=== PATIENT | male | born 1950 | race Caucasian/White ===

== ENCOUNTER 2019-04-28 17:45 | Observation (INO) ==
[2019-04-28 18:18] LABS: Hematocrit 41.7 % (37.5-50.1); Mean Corpuscular HGB Conc 33.6 g/dL (31.6-35.5); Mean Corpuscular Hemoglobin 30.4 pg (28.0-33.3); Mean Corpuscular Volume 90.5 fL (83.0-100.0); Mean Platelet Volume 9.9 fL (9.4-12.4); Platelet Count 220 K/mcL (140-400); Red Blood Count 4.61 M/mcL (4.19-5.50); Red Cell Distribution Width 13.1 % (11.5-14.5); White Blood Count 8.7 K/mcL (4.3-11.1)
[2019-04-28 18:27] LABS: Prothrombin Time 11.1 Seconds (9.4-12.1)
[2019-04-28 18:29] LABS: Activated Partial Thrombo Time 33.3 Seconds (26.0-36.0)
[2019-04-28 18:33] LABS: BUN/Creatinine Ratio 16 (6-26); Blood Urea Nitrogen 22 mg/dL (8-23); Calcium 8.6 mg/dL (8.6-10.3); Carbon Dioxide 27 mEq/L (23-29); Chloride 106 mEq/L (98-107); Ethanol < 10 mg/dL (Less than 10); Glucose 113 mg/dL (70-105); Osmolality,Calculated 288 (280-300); Potassium 3.9 mEq/L (3.5-5.1); Sodium 137 mEq/L (136-145); eGFR For African Americans > 60 (> 60); eGFR For Non-African Americans 52 (> 60)
--- NOTE | 2019-04-28 18:35 | Emergency Department Note ---
Disposition Clinical Impression: Numbness Disposition: Admitted As Inpatient Condition: Good Time of Disposition: 11:45 Neuro HPI - General Chief Complaint: ED Neuro Symptoms/Deficit Stated Complaint: R-Sided numbness Time Seen by Provider: 04/28/19 17:56 Source: patient Nursing Notes Reviewed: Yes Vital Signs Reviewed: Yes - History of Present Illness HPI Narrative: Patient is a 69-year-old male who presents with concerns of right sided upper and lower extremity pain and weakness over the past 1.5 hours. Patient states that he laid down to take a nap around 4:00 PM, upon waking around 4:30 he went to stand up and had severe pain in his right arm and leg which almost caused him to fall. He states since this time he is also had decreased sensation and numbness in the right-sided arm and leg. He denies any recent falls or traumas. He is not on blood thinners. He denies a prior history of strokes. He denies any associated headache, visual changes, nausea, vomiting, chest pain, short of breath or systemic symptoms. - Related Data Home Medications: Home Medications Medication Instructions Recorded Confirmed Metoprolol Succinate [Toprol Xl] 50 mg PO DAILY 06/29/15 04/28/19 Duloxetine HCl [Cymbalta] 60 mg PO BID 11/11/17 04/28/19 Isosorbide MONOnitrate (24 HR) 30 mg PO DAILY 11/11/17 04/28/19 [Imdur] Dutasteride 0.5 mg PO DAILY 07/10/18 04/28/19 Lisinopril [Zestril] 5 mg PO DAILY 07/10/18 04/28/19 Nitroglycerin [Nitrostat] 0.4 mg SL AD PRN 07/10/18 04/28/19 Omeprazole [PriLOSEC] 20 mg PO DAILY 07/10/18 04/28/19 Oxycodone HCl [Roxybond] 15 mg PO Q6H PRN 07/10/18 04/28/19 Tamsulosin HCl [Flomax] 0.4 mg PO DAILY 07/10/18 04/28/19 Amlodipine Besylate 10 mg PO HS 04/28/19 04/28/19 Aspirin 81 mg PO HS 04/28/19 04/28/19 Baclofen [Lioresal] 10 mg PO HS 04/28/19 04/28/19 Potassium Citrate [Urocit-K] 15 meq PO BID 04/28/19 04/28/19 Pregabalin [Lyrica] 150 mg PO 1200,0000 04/28/19 04/28/19 hydroCHLOROthiazide 12.5 mg PO DAILY 04/28/19 04/28/19 [Hydrochlorothiazide] Previous Rx's Medication Instructions Recorded Atorvastatin Calcium [Lipitor] 80 mg PO HS #30 tab 06/07/15 Allergies/Adverse Reactions: Allergies Allergy/AdvReac Type Severity Reaction Status Date / Time ciprofloxacin Allergy See Verified 07/10/18 14:05 Comments Gadolinium-Containing Allergy Itching Verified 10/24/17 11:30 Contrast Medi Iodinated Contrast Media Allergy See Verified 07/10/18 14:05 Comments bupropion [From Wellbutrin] AdvReac See Verified 07/10/18 14:05 Comments finasteride [From Proscar] AdvReac See Verified 07/10/18 14:05 Comments glucosamine AdvReac See Verified 07/10/18 14:05 Comments Review of Systems: REVIEW OF SYSTEMS: Constitutional: No F/C, No excessive fatigue Eye: No acute visual changes HENT: No sore throat, No rhinorrhea Resp: No SOB, No cough Cardio: No palpitations, No chest pain GI: No abdominal pain, No nausea, No vomiting, No constipation, No diarrhea, No melena or hematochezia : No dysuria, No hematuria Musculoskeletal: Admits to arm and leg pain, No new joint swelling, No back pain Neuro: Admits to numbness, weakness, No headaches Skin: No skin yellowing/jaundice, No pruritus Past Medical History - Past Medical History Attestation: Yes The following information was validated with the patient. Medical history: Reports: aortic aneurysm, coronary artery disease, GERD, hyperlipidemia, hypertension, kidney stones, myocardial infarction, other Surgical history: Reports: knee replacement, other Psychiatric history: Reports: anxiety, depression - Social History Smoking Status: Former smoker Alcohol use: Reports: none Drug use: Reports: none Physical Exam PHYSICAL EXAM: Constitutional: Stated Age HENT: NC/AT, Mucous membranes moist Eyes: No scleral icterus, No photophobia, EOMI Neck: No nuchal rigidity, Supple, Trachea midline Cardiac: Regular rate and rhythm, S1 and S2 normal, no S3, S4, no murmurs gallops or rubs Thorax & Lungs: Clear to auscultation bilaterally, no wheezes, crackles or rhonchi, No chest tenderness Abdomen: Soft, non-tender, non-distended, no rebound or guarding Skin: Warm, dry, pink, No mottling Extremities: No deformities Musculoskeletal: Normal tone Neurologic: NIH = 1 for right-sided sensory deficits, CN II-XII intact, negative Romberg, motor strength fully intact in all extremities, no aphasia or dysarthria Psychiatric: appropriately oriented for baseline - General General appearance: alert, in no apparent distress Course Vital Signs Temperature 98.1 F 04/28/19 18:01 Pulse Rate 60 04/28/19 18:01 Respiratory Rate 19 04/28/19 18:01 Blood Pressure 147/76 04/28/19 18:01 O2 Sat by Pulse Oximetry 96 04/28/19 18:01 Temperature 98.0 F 04/28/19 23:42 Pulse Rate 57 04/28/19 23:42 Respiratory Rate 18 04/28/19 23:42 Blood Pressure 149/70 04/28/19 23:42 O2 Sat by Pulse Oximetry 92 04/28/19 23:42 Oxygen Delivery Oxygen Delivery Room Air Neuro Symptoms/Deficit - MDM Narrative Medical decision making narrative: Patient is a 69-year-old male who presents with concerns of sudden onset right- sided upper or lower extremity weakness and numbness. On physical exam, he was afebrile, hemodynamically stable. He did have subjective numbness of the right arm and leg, the remainder of the neurological exam was benign. Related NIH=1. The patient was evaluated by a conference to [facility], was not felt to be a TPA c andidate. The remainder of the workup performed in the emergency department was relatively unremarkable, including CT head. Patient only hospitalized at this time for continued evaluation and management of his presenting symptoms. - Lab Data Result diagrams: 04/28/19 18:08 04/28/19 18:08 Lab Results 04/28/19 04/28/19 04/28/19 Range/Units 18:05 18:08 18:08 WBC 8.7 (4.3-11.1) K/mcL RBC 4.61 (4.19-5.50) M/mcL Hgb 14.0 (12.9-16.9) g/dL Hct 41.7 (37.5-50.1) % MCV 90.5 (83.0-100.0) fL MCH 30.4 (28.0-33.3) pg MCHC 33.6 (31.6-35.5) g/dL RDW 13.1 (11.5-14.5) % Plt Count 220 (140-400) K/mcL MPV 9.9 (9.4-12.4) fL PT 11.1 (9.4-12.1) Seconds INR 1.0 APTT 33.3 (26.0-36.0) Seconds Sodium (136-145) mEq/L Potassium (3.5-5.1) mEq/L Chloride (98-107) mEq/L Carbon Dioxide (23-29) mEq/L BUN (8-23) mg/dL Creatinine (0.70-1.30) mg/dL Est GFR ( Amer) (> 60) Est GFR (Non-Af Amer) (> 60) BUN/Creatinine Ratio (6-26) Glucose (70-105) mg/dL POC Glucose 116 H (70-99) mg/dL Calculated Osmolality (280-300) Calcium (8.6-10.3) mg/dL Troponin I (< 0.04) ng/mL Urine Opiates Screen (Bggusq=884) ng/mL Ur Buprenorphine Scrn (Cutoff=5) ng/mL Ur Barbiturates Screen (Ulkluh=568) ng/mL Ur Phencyclidine Scrn (Cutoff=25) ng/mL Ur Amphetamines Screen (Caabfl=1996) ng/mL U Benzodiazepines Scrn (Pxdlnn=859) ng/mL Urine Cocaine Screen (Cutoff= 300) ng/mL U Marijuana (THC) Screen (Cutoff = 50) ng/mL Ur Drug Screen Interp Ethyl Alcohol (Less than 10) mg/dL 04/28/19 04/28/19 Range/Units 18:08 19:17 WBC (4.3-11.1) K/mcL RBC (4.19-5.50) M/mcL Hgb (12.9-16.9) g/dL Hct (37.5-50.1) % MCV (83.0-100.0) fL MCH (28.0-33.3) pg MCHC (31.6-35.5) g/dL RDW (11.5-14.5) % Plt Count (140-400) K/mcL MPV (9.4-12.4) fL PT (9.4-12.1) Seconds INR APTT (26.0-36.0) Seconds Sodium 137 (136-145) mEq/L Potassium 3.9 (3.5-5.1) mEq/L Chloride 106 (98-107) mEq/L Carbon Dioxide 27 (23-29) mEq/L BUN 22 (8-23) mg/dL Creatinine 1.36 H (0.70-1.30) mg/dL Est GFR ( Amer) > 60 (> 60) Est GFR (Non-Af Amer) 52 L (> 60) BUN/Creatinine Ratio 16 (6-26) Glucose 113 H (70-105) mg/dL POC Glucose (70-99) mg/dL Calculated Osmolality 288 (280-300) Calcium 8.6 (8.6-10.3) mg/dL Troponin I < 0.03 (< 0.04) ng/mL Urine Opiates Screen Positive H (Zppnib=000) ng/mL Ur Buprenorphine Scrn Negative (Cutoff=5) ng/mL Ur Barbiturates Screen Negative (Vegikd=337) ng/mL Ur Phencyclidine Scrn Negative (Cutoff=25) ng/mL Ur Amphetamines Screen Negative (Nwggmw=0240) ng/mL U Benzodiazepines Scrn Negative (Pbxtzt=482) ng/mL Urine Cocaine Screen Negative (Cutoff= 300) ng/mL U Marijuana (THC) Screen Negative (Cutoff = 50) ng/mL Ur Drug Screen Interp See Below Ethyl Alcohol < 10 (Less than 10) mg/dL TPA Checklist - LKW: 3-4.5 hrs Add. Warnings/Precautions Patient/family understanding: The patient/family members have been counseled and understood the risk, benefit, and alternatives of treatment.
[2019-04-28 18:41] LABS: Troponin I < 0.03 ng/mL (< 0.04)
[2019-04-28 19:45] LABS: Amphetamine Screen,Urine Negative ng/mL (Cutoff=1000); Barbiturate Screen,Urine Negative ng/mL (Cutoff=200); Benzodiazepines Screen,Urine Negative ng/mL (Cutoff=200); Cannabinoid Screen,Urine Negative ng/mL (Cutoff = 50); Cocaine Screen,Urine Negative ng/mL (Cutoff= 300); Opiate Screen,Urine Positive ng/mL (Cutoff=300); Phencyclidine Screen,Urine Negative ng/mL (Cutoff=25)
[2019-04-28] MEDS ORDERED: Aspirin 81 MG TAB.CHEW PO SCH (21:00)
[2019-04-28] MEDS: *HR* Heparin 5,000 UNIT/ML VIAL SQ SCH (23:18)
[2019-04-29] MEDS ORDERED: Baclofen 10 MG TABLET PO SCH (01:30)
[2019-04-29] MEDS: *HR* OxyCODONE Immed Rel 5 MG TABLET PO PRN ×3 (01:39→14:10)
[2019-04-29] MEDS: Pregabalin 75 MG CAPSULE PO SCH ×2 (01:40→14:10)
[2019-04-29 01:55] LABS: Prothrombin Time 11.4 Seconds (9.4-12.1)
[2019-04-29 02:03] LABS: Alanine Aminotransferase 30 Units/L (7-52); Albumin/Globulin Ratio 1.5 (1.1-2.2); Alkaline Phosphatase 80 Units/L (34-104); Aspartate Amino Transferase 23 Units/L (13-39); BUN/Creatinine Ratio 13 (6-26); Bilirubin,Total 0.5 mg/dL (0.3-1.0); Blood Urea Nitrogen 19 mg/dL (8-23); Carbon Dioxide 26 mEq/L (23-29); Chloride 105 mEq/L (98-107); Chol/HDL Ratio 3.3 (0-4.9); Cholesterol 92 mg/dL (< 200); Globulin 2.6 g/dL (2.4-3.5); Glucose 140 mg/dL (70-105); HDL Cholesterol 28 mg/dL (40-59); LDL Cholesterol,Calculated 34 mg/dL (0-99); Osmolality,Calculated 293 (280-300); Potassium 3.2 mEq/L (3.5-5.1); Sodium 139 mEq/L (136-145); Total Protein 6.6 g/dL (6.4-8.9); Triglycerides 149 mg/dL (< 150); Troponin I < 0.03 ng/mL (< 0.04); eGFR For African Americans 59 (> 60); eGFR For Non-African Americans 49 (> 60)
--- NOTE | 2019-04-29 03:28 | Internal Med History&Physical ---
Date of Encounter: 04/29/19 Time of Encounter: 03:15 Internal Medicine - H&P: HPI Chief complaint: Right lower extremity pain and weakness History of present illness: Mr. Santana is a 69 year old male with a past medical history of coronary artery disease, hypertension, hyperlipidemia, BPH, CKD and chronic back pain status post disc fusion (2016) and laminectomy (2015) with implantation of a pain pump and currently on chronic opioids who presented to the ED due to concerns of right-sided upper and lower extremity pain and weakness concerning for stroke. Patient reports around 4:30 in the afternoon after awakening from a nap he went to stand up and suddenly had severe pain in the right buttocks radiating down to his right leg. Patient went to stand and fell back down into his bed due to right lower extremity weakness. Symptoms were associated with numbness in his right upper extremity. No prior history of stroke. Patient had appointment for a CT scan of his spine that day and decided he would get the imaging study done and then report to the ED. On arrival to the ED, patient was evaluated by [facility] neurology. Workup performed in the emergency department was relatively unremarkable, including CT head. He was deemed not a candidate for TPA. On my assessment, patient was still complaining of weakness in his right leg and felt wobbly when attempting to stand again in my presence He reports the numbness in his right upper extremity appears to have resolved here and does admit to possibly sleeping on his right side and on his right arm ; further adds that the numbness in his right arm is not new. Patient currently neurologically intact. He does have some weakness in the right lower extremity compared to the left but this is unclear as to whether pain is contributing to it. Patient otherwise denies any recent illness, chest pain, shortness of breath, nausea, vomiting or diarrhea. Admitted for further evaluation for possible stroke. Past Med Surg Social Fam HX - Past Medical History Medical history: aortic aneurysm, coronary artery disease, GERD, hyperlipidemia, hypertension, kidney stones, myocardial infarction, other Additional medical history: MIGUEL, MRSA, depression, kidney stones, Gout, cardiac stents Psychiatric history: anxiety, depression - Past Surgical History Surgical History: knee replacement, other Additional surgical history: laminectomy, left nephrostomy tube. septo, laminectomy, - Social History Smoking Status: Former smoker Alcohol use: none Drug use: none - Family History Mother Living Status: Hx Family Cardiac Disorders: Yes Father Family Member Ethnicity: Non- Living Status: Hx Family Cardiac Disorders: Yes (cardiomyopathy) Hx Family Respiratory Disorders: No Hx Family Cancer: No Hx Family GI Disorders: Yes (ulcers) Hx Family Endocrine Disorder: No Hx Family Neuromuscular Disorders: No Hx Family Neurologic Disorders: Yes Hx Family HEENT Disorders: No Hx Family Autoimmune Disorders: No Internal Medicine - H&P: Meds Atorvastatin Calcium [Lipitor] 80 mg PO HS #30 tab 06/07/15 [Rx] Metoprolol Succinate [Toprol Xl] 50 mg PO DAILY 06/29/15 [History] Duloxetine HCl [Cymbalta] 60 mg PO BID 11/11/17 [History] Isosorbide MONOnitrate (24 HR) [Imdur] 30 mg PO DAILY 11/11/17 [History] Dutasteride 0.5 mg PO DAILY 07/10/18 [History] Lisinopril [Zestril] 5 mg PO DAILY 07/10/18 [History] Nitroglycerin [Nitrostat] 0.4 mg SL AD PRN 07/10/18 [History] Omeprazole [PriLOSEC] 20 mg PO DAILY 07/10/18 [History] Oxycodone HCl [Roxybond] 15 mg PO Q6H PRN 07/10/18 [History] Tamsulosin HCl [Flomax] 0.4 mg PO DAILY 07/10/18 [History] Amlodipine Besylate 10 mg PO HS 04/28/19 [History] Aspirin 81 mg PO HS 04/28/19 [History] Baclofen [Lioresal] 10 mg PO HS 04/28/19 [History] Potassium Citrate [Urocit-K] 15 meq PO BID 04/28/19 [History] Pregabalin [Lyrica] 150 mg PO 1200,0000 04/28/19 [History] hydroCHLOROthiazide [Hydrochlorothiazide] 12.5 mg PO DAILY 04/28/19 [History] Allergy/AdvReac Type Severity Reaction Status Date / Time ciprofloxacin Allergy See Verified 07/10/18 14:05 Comments Gadolinium-Containing Allergy Itching Verified 10/24/17 11:30 Contrast Medi Iodinated Contrast Media Allergy See Verified 07/10/18 14:05 Comments bupropion [From Wellbutrin] AdvReac See Verified 07/10/18 14:05 Comments finasteride [From Proscar] AdvReac See Verified 07/10/18 14:05 Comments glucosamine AdvReac See Verified 07/10/18 14:05 Comments All Systems PM: A 10-system review of systems was performed and is negative for pertinent findings except as documented above in the HPI. - Constitutional Constitutional: no chills, no fever(s), no night sweats - EENT Eyes: no change in vision, no discharge, no pain, no photophobia Ears: no ear discharge, no ear pain, no tinnitus Nose, mouth and throat: no dysphagia, no nasal discharge, no neck pain, no sore throat - Cardiovascular Cardiovascular ROS IM: no chest pain, no diaphoresis, no dyspnea, no lightheadedness, no palpitations, no syncope - Respiratory Respiratory: no cough, no dyspnea, no wheezing, no excessive phlegm production - Gastrointestinal Gastrointestinal: no abdominal pain, no diarrhea, no hematemesis, no hematochezia, no melena, no nausea, no vomiting - Musculoskeletal Musculoskeletal ROS IM: no numbness, no tingling - Integumentary Integumentary IM: no rash, no unusual bruising - Neurological Neurological ROS: no confusion, no convulsions, no focal weakness, no numbness, no tingling, no tremor(s) - Hematologic/Lymphatic Hematologic/Lymphatic: no easy bruising - Constitutional Vitals: Temp Pulse Resp BP Pulse Ox 98.0 F 68 17 149/70 93 04/29/19 03:04 04/29/19 03:04 04/29/19 03:04 04/29/19 03:04 04/29/19 03:04 Exam: General: Alert and oriented 3 Skin:Normal color, no rash, no lesions. HEENT:EOM, pupils equal, round and reactive. Cardiovascular:Normal S1 & S2, no rubs, murmurs or gallops. No JVD. Pulse regular. Lungs:Normal breath sounds, no wheezes or crackles. Abdomen:Soft, non-tender, no rigidity. Extremities:No deformity, no edema or tenderness, no joint swelling or clubbing. Neurological:Normal cognition and motor skills. cranial nerves II through XII intact. Sensation intact. No pronator drift. Upper extremity strength 5 out of 5 bilaterally. Lower extremity strength 4 out of 5 on the right; 5 out of 5 on the left. Pulses:Carotid and radial pulses normal +2. Rest of the physical exam is non contributory Internal Med - H&P Results - Labs CBC & Chem 7: 04/28/19 18:08 04/29/19 00:57 Labs: Short CBC 04/28/19 Range/Units 18:08 WBC 8.7 (4.3-11.1) K/mcL Hgb 14.0 (12.9-16.9) g/dL Hct 41.7 (37.5-50.1) % Plt Count 220 (140-400) K/mcL BMP 04/28/19 04/29/19 18:08 00:57 Sodium 137 139 Potassium 3.9 3.2 L Chloride 106 105 Carbon Dioxide 27 26 BUN 22 19 Creatinine 1.36 H 1.43 H Glucose 113 H 140 H Calcium 8.6 9.0 Cardiac Enzymes 04/28/19 04/29/19 Range/Units 18:08 00:57 Troponin I < 0.03 < 0.03 (< 0.04) ng/mL Liver Function 04/29/19 Range/Units 00:57 Total Bilirubin 0.5 (0.3-1.0) mg/dL AST 23 (13-39) Units/L ALT 30 (7-52) Units/L Alkaline Phosphatase 80 (34-104) Units/L Albumin 4.0 (3.5-5.7) g/dL - Impressions ITS Impressions Head CT 04/28/19 18:10 IMPRESSION: 1. No acute intracranial abnormality. Findings were discussed with Jak Quinteros DO at 6:26 pm on 04/28/2019. D/ / 04/28/2019 18:27:52 Gustavo Mendenhall MD / sandra Interpreting Provider: Gustavo Mendenhall MD - Assessment and Plan (1) Stroke-like symptoms Status: Acute Assessment and plan: Patient presenting with sudden onset right-sided lower extremity weakness and pain associated with numbness and tingling in the right upper extremity. No prior history of stroke. CT scan of the head was negative. Patient was evaluated by [facility] neurology and deemed to be not a candidate for TPA. Initial NIH score of 1 on arrival. Patient currently neurologically intact with some mild right lower extremity weakness compared to the left. Patient has extensive history of chronic low back pain status post laminectomy and disc fusion. At this time I suspect underlying etiology likely secondary to radiculopathy as opposed to stroke given the combination of extreme pain and weakness. Patient reporting right upper extremity numbness is not new and has been intermittent in the past. Nonetheless we will rule out stroke. -Telemetry -Neurochecks -Holding antihypertensives to allow for permissive hypertension -Lipid panel; A1c -MRI of the head in the morning in the a.m. if pain pump and hardware compatible. Would also recommend MRI of the lumbar spine -Neurology consult (2) Coronary artery disease Status: Acute Assessment and plan: History of coronary artery disease -Resume aspirin, statin, beta mi Qualifiers: Coronary Disease-Associated Artery/Lesion type: unspecified vessel or lesion type Associated angina: angina presence unspecified Qualified Code(s): I25.10 - Atherosclerotic heart disease of [place] coronary artery without angina pectoris (3) Chronic kidney disease Status: Acute Assessment and plan: Creatinine appears to be at baseline. We will monitor Qualifiers: Chronic kidney disease stage: unspecified stage Qualified Code(s): N18.9 - Chronic kidney disease, unspecified (4) HTN (hypertension) Status: Chronic Assessment and plan: Pressure stable. Hold antihypertensives for now until CVA ruled out. Qualifiers: Hypertension type: essential hypertension Qualified Code(s): I10 - Essential (primary) hypertension (5) DVT prophylaxis Status: Acute Assessment and plan: Subcutaneous heparin - Time Spent With Patient Total time spent is greater than 50% in coordination of care (as documented) at patient's floor/unit and/or counseling patient:
[2019-04-29] MEDS ORDERED: Potassium Chloride Elixir 20 MEQ/15 ML UDC PO ONE (03:37)
[2019-04-29] MEDS: *HR* Heparin 5,000 UNIT/ML VIAL SQ SCH ×2 (05:34→14:11)
[2019-04-29 07:16] LABS: Estimated Average Glucose 131 mg/dl
[2019-04-29] MEDS ORDERED: Metoprolol XL (24 HR) Succ 50 MG TAB.ER.24H PO SCH (09:00)
[2019-04-29] MEDS ORDERED: (Dutasteride 0.5 MG) PO SCH (09:00)
--- NOTE | 2019-04-29 12:34 | Neurology - Consult Note ---
<Gonsalo Wilks J - Last Filed: 04/29/19 13:01> Date of Encounter: 04/29/19 Time of Encounter: 12:34 Assessment and Plan (1) Stroke-like symptoms Current Visit: Yes Status: Acute Neurology consult was strokelike symptoms Presented with diffuse right-sided weakness and right leg pain All symptoms have resolved and patient is expected baseline On exam of right leg pain reproducible with positioning and appears to musculoskeletal in nature Prior history of chronic lumbar spine disease, pain pump and spinal stimulator implanted follows with pain management Neurological exam is nonfocal and nonlateralizing. However, considering his right-sided weakness and risk factors of age, obesity, CAD, HLD, HTN he is at risk for a central neurological event. We will proceed with rule out. Repeat CT head; unable to do MRI d/t pacer Carotid duplex exam Continue aspirin and statin; he is on chronically Continue neurological assessments per protocol Further recommendations pending workup Rec PT/OT Neurologicy will continue to follow History of Present Illness Chief complaint: diffuse right-sided weakness and right leg pain HPI: Mr. Santana is a 69 year old male with a PMH of aortic aneurysm, CAD S/P NE, GERD, HLD, CKD, chronic back pain with disc fusion in 2016, laminectomy 2015, pain pump and spinal stimulator in place and HTN. He presents to [facility] with concerns for TIA/CVA. The patient reports that 4:30 PM yesterday afternoon upon awakening from a nap he had sudden development of severe pain in his right buttock radiating down his posterior right leg into his feet. Additionally that she was having right arm and leg weakness. He denies any visual disturbances, gait disturbance, dysphagia, dysarthria, facial asymmetry, paresthesias, chest pain, palpitations, urinary symptoms, nausea vomiting diarrhea, fevers, chills, weight loss, night sweats. My assessment morning he noticed the right upper extremity weakness has completely resolved and that the right leg weakness and pain has significantly improved. CT of the head completed and negative for acute intracranial findings. Cancer panel positive for stable CKD and hypokalemia with serum potassium of 3.2. Otherwise no acute findings. UDS positive for opiates for which he is p rescribed. Past Med Surg Social Fam HX - Past Medical History Medical history: aortic aneurysm, coronary artery disease, GERD, hyperlipidemia, hypertension, kidney stones, myocardial infarction, other Additional medical history: MIGUEL, MRSA, depression, kidney stones, Gout, cardiac stents Psychiatric history: anxiety, depression - Past Surgical History Surgical History: knee replacement, other Additional surgical history: laminectomy, left nephrostomy tube. septo, laminectomy, - Social History Smoking Status: Former smoker Alcohol use: none Drug use: none - Family History Mother Living Status: Hx Family Cardiac Disorders: Yes Father Family Member Ethnicity: Non- Living Status: Hx Family Cardiac Disorders: Yes (cardiomyopathy) Hx Family Respiratory Disorders: No Hx Family Cancer: No Hx Family GI Disorders: Yes (ulcers) Hx Family Endocrine Disorder: No Hx Family Neuromuscular Disorders: No Hx Family Neurologic Disorders: Yes Hx Family HEENT Disorders: No Hx Family Autoimmune Disorders: No Medications and Allergies Atorvastatin Calcium [Lipitor] 80 mg PO HS #30 tab 06/07/15 [Rx] Metoprolol Succinate [Toprol Xl] 50 mg PO DAILY 06/29/15 [History] Duloxetine HCl [Cymbalta] 60 mg PO BID 11/11/17 [History] Isosorbide MONOnitrate (24 HR) [Imdur] 30 mg PO DAILY 11/11/17 [History] Dutasteride 0.5 mg PO DAILY 07/10/18 [History] Lisinopril [Zestril] 5 mg PO DAILY 07/10/18 [History] Nitroglycerin [Nitrostat] 0.4 mg SL AD PRN 07/10/18 [History] Omeprazole [PriLOSEC] 20 mg PO DAILY 07/10/18 [History] Oxycodone HCl [Roxybond] 15 mg PO Q6H PRN 07/10/18 [History] Tamsulosin HCl [Flomax] 0.4 mg PO DAILY 07/10/18 [History] Amlodipine Besylate 10 mg PO HS 04/28/19 [History] Aspirin 81 mg PO HS 04/28/19 [History] Baclofen [Lioresal] 10 mg PO HS 04/28/19 [History] Potassium Citrate [Urocit-K] 15 meq PO BID 04/28/19 [History] Pregabalin [Lyrica] 150 mg PO 1200,0000 04/28/19 [History] hydroCHLOROthiazide [Hydrochlorothiazide] 12.5 mg PO DAILY 04/28/19 [History] Allergy/AdvReac Type Severity Reaction Status Date / Time ciprofloxacin Allergy See Verified 07/10/18 14:05 Comments Gadolinium-Containing Allergy Itching Verified 10/24/17 11:30 Contrast Medi Iodinated Contrast Media Allergy See Verified 07/10/18 14:05 Comments bupropion [From Wellbutrin] AdvReac See Verified 07/10/18 14:05 Comments finasteride [From Proscar] AdvReac See Verified 07/10/18 14:05 Comments glucosamine AdvReac See Verified 07/10/18 14:05 Comments All Systems: The remainder of the systems were reviewed and are negative Review of Systems: REVIEW OF SYSTEMS GENERAL: Negative for any nausea, vomiting, fevers, chills, or weight loss NEUROLOGIC: Negative for any blurry vision, blind spots, double vision, facial asymmetry, dysphagia, dysarthria, hemiparesis, hemisensory deficits, vertigo, ataxia, seizures, paralysis, tingling, numbness Positive-right arm and leg weakness, right leg pain HEENT: Negative for any head trauma, neck trauma, neck stiffness CARDIAC: Negative for any chest pain, dyspnea, palpitations or peripheral edema. MUSCULOSKELETAL: -5 Joint pain, stiffness, loss of strength The remainder of the review of systems reviewed and found to be negative Physical Examination - Vital Signs Vital Signs: Initial Vital Signs Temp Pulse Resp BP Pulse Ox 98.1 F 60 19 147/76 96 04/28/19 18:01 04/28/19 18:01 04/28/19 18:01 04/28/19 18:01 04/28/19 18:01 - Exam Exam: Examination: General Examination: *CONSTITUTIONAL: Alert and oriented x3, no acute distress *GENERAL APPEARANCE OF PATIENT appears healthy and well groomed *EYES: pupils equal, round, reactive to light and accommodation, conjunctiva clear without masses or ulcerations, fundi normal. *CARDIOVASCULAR: no peripheral edema, distal temperature normal, dorsalis pedis pulses normal. Refer to vital signs * MUSCULOSKELETAL: *GAIT AND STATION: normal, with normal Romberg testing, no abnormalities such as broad base gait or spasticity *ASSESSMENT OF MUSCLE STRENGTH IN THE UPPER AND LOWER EXTREMITIES bilateral deltoid, bicep, fifth hand strength, hip flexors ,anterior tibialis, dorsoflexion of the foot 5/5. Left triceps 5/5, right triceps 4/5 *MUSCLE TONE IN THE UPPER AND LOWER EXTREMITIES normal. No abnormal movements, fasciculations or atrophy identified. Neurological: *ORIENTATION to person, situation, time and place *LANGUAGE AND FUNCTION no significant aphasia or dysarthia was noted. *ATTENTION AND CONCENTRATION are normal *LANGUAGE FUNCTION no significant aphasia or dysarthia was noted. *FUND OF KNOWLEDGE aware of current events, past history, vocabulary *MENTAL attention span and concentration normal. *CN II optic fundi were normal, no papilledema noted. *CN III,IV, PERRLA extraocular eye movements were full, no nystagmus and no ptosis noted. *CN V shows normal sensation and jaw opens symmetrically. *CN VII shows normal facial movement symmetrically, upper and lower bilaterally. *CN VIII shows no significant hearing loss on exam *CN IX-X palate elevated symmetrically *CN XI normal strength in the sternocleidomastoid muscles, symmetrical shoulder shrugging. *CN XII tongue protruded in the midline, with normal strength and movement. *SENSORY EXAMINATION light touch intact *REFLEXES: deep tendon reflexes were normal and symmetrical , grade 2/4 diffusely, no pathological reflexes were noted. *CEREBELLAR TESTING normal finger to nose, heel/knee/mendieta *PAIN LEVEL 0/10 Results - Laboratory Findings CBC and BMP: 04/28/19 18:08 04/29/19 00:57 Abnormal lab findings: Abnormal lab results Potassium 3.2 mEq/L (3.5-5.1) L 04/29/19 00:57 Creatinine 1.43 mg/dL (0.70-1.30) H 04/29/19 00:57 Est GFR ( Amer) 59 (> 60) L 04/29/19 00:57 Est GFR (Non-Af Amer) 49 (> 60) L 04/29/19 00:57 Glucose 140 mg/dL (70-105) H 04/29/19 00:57 POC Glucose 116 mg/dL (70-99) H 04/28/19 18:05 Hemoglobin A1c 6.2 % (-5.6) H 04/29/19 00:57 HDL Cholesterol 28 mg/dL (40-59) L 04/29/19 00:57 Urine Opiates Screen Positive ng/mL (Ycxruc=388) H 04/28/19 19:17 Consult Discharge Plan - Plan Referrals: Anmol Daniels MD [Primary Care Provider] - <Mike Mendieta - Last Filed: 04/29/19 15:18> Date of Encounter: 04/29/19 Assessment and Plan (1) Stroke-like symptoms Current Visit: Yes Status: Acute I have personally performed a [id number] assessment of the patient and have reviewed the PA/CONSULTING INTERN note. My impressions are as follows: Case was discussed with the RATING OFFICER. I agree with his assessment and plan as stated above. Certainly her stroke workup is indicated. The pain and paresthesias of the right lower extremity are likely due to various levels of spinal stenosis along with neural foraminal encroachment at multiple levels. I also agree with ruling out stroke since this patient did experience right upper extremity paresthesias. His symptoms of the right upper extremity have completely resolved. CT scan of the brain was unrevealing. Carotid Doppler studies pending. He has had a recent cardiac workup which was unrevealing. I agree with maintaining aspirin and statin therapy. He will follow up with pain management regarding the right lower extremity leg pain after discharge. We will reevaluate in the morning. History of Present Illness HPI: Chart was reviewed, patient was seen and examined independently. The case was discussed with the RATING OFFICER. Apparently patient had a CT of the lumbar spine earlier in the day of admission. Then later that evening began experiencing these symptoms mentioned above. I agree with the documentation of the history of present illness as above. All Systems: The remainder of the systems were reviewed and are negative Review of Systems: The balance of the systems review is negative. Physical Examination - Vital Signs Vital Signs: Initial Vital Signs Temp Pulse Resp BP Pulse Ox 98.1 F 60 19 147/76 96 04/28/19 18:01 04/28/19 18:01 04/28/19 18:01 04/28/19 18:01 04/28/19 18:01 - Exam Exam: I have personally performed a ytqy-nl-[id number] assessment of the patient and have reviewed the PA/CONSULTING INTERN note. My impressions are as follows: A complete an independent neurologic examination was performed on this patient. I agree with the documentation as stated above by the RATING OFFICER. Results - Laboratory Findings CBC and BMP: 04/28/19 18:08 04/29/19 00:57 Abnormal lab findings: Abnormal lab results Potassium 3.2 mEq/L (3.5-5.1) L 04/29/19 00:57 Creatinine 1.43 mg/dL (0.70-1.30) H 04/29/19 00:57 Est GFR ( Amer) 59 (> 60) L 04/29/19 00:57 Est GFR (Non-Af Amer) 49 (> 60) L 04/29/19 00:57 Glucose 140 mg/dL (70-105) H 04/29/19 00:57 POC Glucose 116 mg/dL (70-99) H 04/28/19 18:05 Hemoglobin A1c 6.2 % (-5.6) H 04/29/19 00:57 HDL Cholesterol 28 mg/dL (40-59) L 04/29/19 00:57 Urine Opiates Screen Positive ng/mL (Mcjxay=220) H 04/28/19 19:17
[2019-04-29 12:59] VITALS: BP 126/68
--- NOTE | 2019-04-29 14:17 | Discharge Summary ---
- NOTES TO OUTPATIENT PROVIDER Notes to Outpatient Provider: f/u with PCP in one week. f/u with pain management in 1-2 weeks. Date of Encounter: 04/29/19 Time of Encounter: 14:17 - Discharge Diagnosis (1) TIA (transient ischemic attack) Priority: Primary Status: Acute (2) HTN (hypertension) Priority: Secondary Status: Chronic Qualifiers: Hypertension type: essential hypertension Qualified Code(s): I10 - Essential (primary) hypertension (3) Coronary artery disease Priority: Secondary Status: Acute Qualifiers: Coronary Disease-Associated Artery/Lesion type: unspecified vessel or lesion type Associated angina: angina presence unspecified Qualified Code(s): I25.10 - Atherosclerotic heart disease of [place] coronary artery without angina pectoris (4) Chronic kidney disease Priority: Secondary Status: Acute Qualifiers: Chronic kidney disease stage: unspecified stage Qualified Code(s): N18.9 - Chronic kidney disease, unspecified (5) DVT prophylaxis Priority: Secondary Status: Acute Hospital course: Mr. Santana is a 69 year old male with a past medical history of coronary artery disease, hypertension, hyperlipidemia, BPH, CKD-3 and chronic back pain status post disc fusion (2016) and laminectomy (2015) with implantation of a pain pump and currently on chronic opioids who presented to the ED due to concerns of right-sided upper and lower extremity pain and weakness concerning for stroke. On arrival to the ED, patient was evaluated by [facility] neurology. Workup performed in the emergency department was relatively unremarkable, including CT head. He was deemed not a candidate for TPA. He was admitted in the hospital and placed him on panel monitor. He denied anymore weakness/numbness in right upper extremity and lower extremity. His initial CT of the head did not show any acute intracranial hemorrhage. We were unable to do Brain MRI due to his pain pump, so repeated another CT of Head 24 hrs later which did not show any acute intra cranial abnormality. We ordered Carotid doppler, however pt do not wanted to wait for this test done. So I talked to PCP Dr. Daniels, to have this done as an out pt. At this point I recommended the pt to continue taking Aspirin 81mg Daily and Lipitor 80mg HS. Will d/c him home in stable condition today. - Time Spent with Patient Total time spent providing and/or coordinating discharge services: - Discharge Medications Prescriptions: Continued Atorvastatin Calcium [Lipitor] 80 mg PO HS #30 tab Metoprolol Succinate [Toprol Xl] 50 mg PO DAILY Isosorbide MONOnitrate (24 HR) [Imdur] 30 mg PO DAILY Duloxetine HCl [Cymbalta] 60 mg PO BID Dutasteride 0.5 mg PO DAILY Lisinopril [Zestril] 5 mg PO DAILY Omeprazole [PriLOSEC] 20 mg PO DAILY Oxycodone HCl [Roxybond] 15 mg PO Q6H PRN PRN Reason: Pain Tamsulosin HCl [Flomax] 0.4 mg PO DAILY Nitroglycerin [Nitrostat] 0.4 mg SL AD PRN PRN Reason: Chest Pain Amlodipine Besylate 10 mg PO HS Aspirin 81 mg PO HS Baclofen [Lioresal] 10 mg PO HS hydroCHLOROthiazide [Hydrochlorothiazide] 12.5 mg PO DAILY Potassium Citrate [Urocit-K] 15 meq PO BID Pregabalin [Lyrica] 150 mg PO 1200,0000 Home Medications: Atorvastatin Calcium [Lipitor] 80 mg PO HS #30 tab 06/07/15 [Rx] Metoprolol Succinate [Toprol Xl] 50 mg PO DAILY 06/29/15 [History] Duloxetine HCl [Cymbalta] 60 mg PO BID 11/11/17 [History] Isosorbide MONOnitrate (24 HR) [Imdur] 30 mg PO DAILY 11/11/17 [History] Dutasteride 0.5 mg PO DAILY 07/10/18 [History] Lisinopril [Zestril] 5 mg PO DAILY 07/10/18 [History] Nitroglycerin [Nitrostat] 0.4 mg SL AD PRN 07/10/18 [History] Omeprazole [PriLOSEC] 20 mg PO DAILY 07/10/18 [History] Oxycodone HCl [Roxybond] 15 mg PO Q6H PRN 07/10/18 [History] Tamsulosin HCl [Flomax] 0.4 mg PO DAILY 07/10/18 [History] Amlodipine Besylate 10 mg PO HS 04/28/19 [History] Aspirin 81 mg PO HS 04/28/19 [History] Baclofen [Lioresal] 10 mg PO HS 04/28/19 [History] Potassium Citrate [Urocit-K] 15 meq PO BID 04/28/19 [History] Pregabalin [Lyrica] 150 mg PO 1200,0000 04/28/19 [History] hydroCHLOROthiazide [Hydrochlorothiazide] 12.5 mg PO DAILY 04/28/19 [History] Allergies/Adverse Reactions: Allergy/AdvReac Type Severity Reaction Status Date / Time ciprofloxacin Allergy See Verified 07/10/18 14:05 Comments Gadolinium-Containing Allergy Itching Verified 10/24/17 11:30 Contrast Medi Iodinated Contrast Media Allergy See Verified 07/10/18 14:05 Comments bupropion [From Wellbutrin] AdvReac See Verified 07/10/18 14:05 Comments finasteride [From Proscar] AdvReac See Verified 07/10/18 14:05 Comments glucosamine AdvReac See Verified 07/10/18 14:05 Comments Date of admission: 04/28/19 20:27 Primary care physician: Anmol Daniels MD Consults: 04/28/19 20:44 Consult to Neurology [CONS] Routine Consulting Provider: Neurology [facility] Reason for Consult: Right sided weakness; CTA/TIA eval. Call Completed: No Consult to Occupational Therapy [CONS] Routine Comment: Evaluate, develop and implement POC Reason for Consult: CTA/TIA eval. Does patient have active BEDREST order?: No Is patient medically & hemodynamically stable?: Yes Consult to Physical Therapy [CONS] Routine Comment: Evaluate, develop and implement POC Reason for Consult: CTA/TIA eval. with Right sided weakness Does patient have active BEDREST order?: No Is patient medically & hemodynamically stable?: Yes Consult to Case Management Director [CONS] Routine Reason for SW Consult: CTA/TIA eval. - Constitutional Vitals: Temp Pulse Resp BP Pulse Ox 98.1 F 74 16 126/68 94 04/29/19 12:57 04/29/19 12:57 04/29/19 12:57 04/29/19 12:57 04/29/19 12:57 General appearance: Present: cooperative, A&O X 3, no acute distress, answers questions appropriately Exam: a - Head Head exam: Present: atraumatic, normal inspection - Neck Neck exam general surgery: Present: supple - Respiratory Respiratory exam: Present: decreased breath sounds. Absent: rales, respiratory distress, rhonchi, wheezes - Cardiovascular Cardiovascular exam: Present: RRR, +S1, +S2. Absent: tachycardia - GI/Abdominal GI/Abdominal exam: Present: normal bowel sounds, soft. Absent: rebound, rigid, tenderness - Extremities Exam Extremities exam: Present: normal inspection. Absent: pedal edema, tenderness - Back Exam Back exam: Absent: CVA tenderness (L), CVA tenderness (R) - Neurological Exam Neurological exam: Present: alert, CN II-XII intact, oriented X3, reflexes normal, no focal deficits, strengths equal and symetr throughout. Absent: facial droop, speech deficit - Psychiatric Psychiatric exam: Present: normal affect, normal mood - Patient Status Disposition: Home, Self-Care Condition: Good Overall status at discharge: patient is back to baseline - Discharge Instructions Instructions: Transient Ischemic Attack (DC), Chronic Hypertension (DC) Follow Up With: Anmol Daniels MD [Primary Care Provider] - - Diet and Activity Activity: increase activity as tolerated Diet: low salt diet
--- NOTE | 2019-04-29 17:44 | Electrocardiograph Report ---
[place] [id number] Test Date: 2019-04-28 Pat Name: Mike Santana Department: [id number] Room: 3B64 Gender: M Steelworker: : 1950 Requested By: Dakota Hilton Order Number: [id number] Reading MD: Samanta Ricrado Measurements Intervals [place] Rate: 60 P: 26 MT: 162 QRS: 24 QRSD: 94 T: 30 QT: 410 QTc: 410 Interpretive Statements Sinus rhythm Abnormal R-wave progression, early transition Electronically Signed On 04-29-2019 17:42:42 EDT by Samanta Ricardo
== END 2019-04-29 18:23 | disposition home or self-care (01) ==
LOC: 3BNU 17:45 → EMEROOARM 17:45 → SUATTDRO 20:27 → 3BNU 20:44
PROVIDERS: ADMIT Internal Medicine; ATTEND Family Medicine

== ENCOUNTER 2022-04-18 15:54 | Inpatient (IN) ==
[2022-04-18 17:12] LABS: Mean Corpuscular Volume 98.4 fL (83.0-100.0); Mean Platelet Volume 10.1 fL (9.4-12.4)
[2022-04-18 17:13] LABS: Basophils % 0.3 %; Eosinophils # 0.2 K/mcL (0.0-0.6); Eosinophils % 3.1 %; Hematocrit 18.3 % (37.5-50.1); Immature Granulocytes % 0.9 % (0-4); Lymphocytes # 0.5 K/mcL (0.6-4.6); Lymphocytes % 7.2 %; Mean Corpuscular HGB Conc 29.5 g/dL (31.6-35.5); Monocytes # 0.7 K/mcL (0.0-1.3); Monocytes % 10.1 %; Neutrophils # 5.3 K/mcL (1.6-8.9); Nucleated Red Blood Cells 0.9 /100 WBC (0); Platelet Count 297 K/mcL (140-400); Red Blood Count 1.86 M/mcL (4.19-5.50); Red Cell Distribution Width 14.2 % (11.5-14.5); Segmented Neutrophils % 78.4 %; White Blood Count 6.7 K/mcL (4.3-11.1)
[2022-04-18 17:15] LABS: Alanine Aminotransferase 10 Units/L (7-52); Albumin 3.6 g/dL (3.5-5.7); Albumin/Globulin Ratio 1.3 (1.1-2.2); Alkaline Phosphatase 64 Units/L (34-104); Aspartate Amino Transferase 20 Units/L (13-39); BUN/Creatinine Ratio 16 (6-26); Bilirubin,Total 0.3 mg/dL (0.3-1.0); Blood Urea Nitrogen 23 mg/dL (8-23); Calcium 8.8 mg/dL (8.6-10.3); Carbon Dioxide 23 mEq/L (23-29); Chloride 104 mEq/L (98-107); Globulin 2.7 g/dL (2.4-3.5); Glucose 102 mg/dL (70-105); Lipase 29 Units/L (11-82); Osmolality,Calculated 288 (280-300); Potassium 4.5 mEq/L (3.5-5.1); Sodium 137 mEq/L (136-145); Total Protein 6.3 g/dL (6.4-8.9); Troponin I < 0.03 ng/mL (< 0.04)
[2022-04-18 17:18] LABS: Hemoglobin 5.4 g/dL (12.9-16.9)
[2022-04-18] MEDS ORDERED: *HR* FentaNYL (PF) 100 MCG/2 ML VIAL IVP ONE (17:43)
[2022-04-18 17:44] LABS: Influenza A PCR Negative (Negative); Influenza B PCR Negative (Negative); Resp. Syncytial Virus PCR Negative (Negative); SARS-CoV-2 by PCR (In House) Negative (Negative)
[2022-04-18 17:46] LABS: Hypochromasia Present (Not Present); Platelet Estimate Normal (Normal); Polychromasia 2+ (Not Present)
[2022-04-18] MEDS ORDERED: 0.9 % Sodium Chloride 250 ML ONE ×2 (17:55→23:19)
[2022-04-18 19:24] LABS: RBC,Urine TNTC per hpf (0-3)
[2022-04-18 19:27] LABS: Clarity,Urine Cloudy (Clear); Color,Urine Red (Yellow)
[2022-04-18] MEDS ORDERED: Naloxone 0.4 MG/ML INJ IVP PRN (20:18)
[2022-04-18] MEDS ORDERED: Ondansetron ODT 4 MG TAB.RAPDIS SL PRN (20:18)
[2022-04-18] MEDS ORDERED: Melatonin 3 MG TABLET PO PRN (20:18)
[2022-04-18] MEDS ORDERED: Acetaminophen 325 MG TABLET PO PRN (20:18)
[2022-04-19] MEDS: Pregabalin 75 MG CAPSULE PO SCH ×3 (01:16→21:03)
[2022-04-19 03:28] LABS: Hematocrit 24.2 % (37.5-50.1); Mean Corpuscular HGB Conc 30.6 g/dL (31.6-35.5); Mean Corpuscular Hemoglobin 29.8 pg (28.0-33.3); Mean Corpuscular Volume 97.6 fL (83.0-100.0); Mean Platelet Volume 10.1 fL (9.4-12.4); Platelet Count 252 K/mcL (140-400); Red Blood Count 2.48 M/mcL (4.19-5.50); White Blood Count 5.2 K/mcL (4.3-11.1)
[2022-04-19 03:33] LABS: Hemoglobin 7.4 g/dL (12.9-16.9)
[2022-04-19 03:50] LABS: Basophils % 0.6 %; Eosinophils # 0.3 K/mcL (0.0-0.6); Eosinophils % 4.9 %; Lymphocytes # 0.7 K/mcL (0.6-4.6); Lymphocytes % 13.5 %; Monocytes # 0.8 K/mcL (0.0-1.3); Monocytes % 14.7 %; Neutrophils # 3.3 K/mcL (1.6-8.9); Nucleated Red Blood Cells 1.4 /100 WBC (0); Segmented Neutrophils % 65.3 %
[2022-04-19] MEDS: cefTRIAXone 1,000 MG in 0.9 % Sodium Chloride Mini Bag 100 ML IVPB SCH (04:52)
[2022-04-19 06:03] LABS: Calcium 7.2 mg/dL (8.6-10.3); Phosphorous 4.3 mg/dL (2.7-4.5); Potassium 3.8 mEq/L (3.5-5.1)
[2022-04-19] MEDS: Baclofen 10 MG TABLET PO SCH (08:23)
[2022-04-19] MEDS: Metoprolol XL (24 HR) Succ 50 MG TAB.ER.24H PO SCH (08:23)
[2022-04-19 17:08] LABS: Hematocrit 24.1 % (37.5-50.1); Hemoglobin 7.5 g/dL (12.9-16.9)
[2022-04-20] MEDS: cefTRIAXone 1,000 MG in 0.9 % Sodium Chloride Mini Bag 100 ML IVPB SCH ×2 (02:37→23:15)
[2022-04-20 02:45] LABS: Basophils % 0.7 %; Eosinophils # 0.4 K/mcL (0.0-0.6); Eosinophils % 6.6 %; Hematocrit 24.2 % (37.5-50.1); Hemoglobin 7.5 g/dL (12.9-16.9); Immature Granulocytes % 0.8 % (0-4); Lymphocytes # 0.6 K/mcL (0.6-4.6); Mean Corpuscular Hemoglobin 29.4 pg (28.0-33.3); Mean Corpuscular Volume 94.9 fL (83.0-100.0); Mean Platelet Volume 9.8 fL (9.4-12.4); Monocytes # 0.7 K/mcL (0.0-1.3); Monocytes % 11.2 %; Neutrophils # 4.3 K/mcL (1.6-8.9); Nucleated Red Blood Cells 0.7 /100 WBC (0); Platelet Count 260 K/mcL (140-400); Red Blood Count 2.55 M/mcL (4.19-5.50); Red Cell Distribution Width 14.6 % (11.5-14.5); Segmented Neutrophils % 70.7 %; White Blood Count 6.1 K/mcL (4.3-11.1)
[2022-04-20 03:16] LABS: Calcium 8.1 mg/dL (8.6-10.3); Magnesium 2.2 mg/dL (1.6-2.6); Phosphorous 3.6 mg/dL (2.7-4.5); Potassium 4.6 mEq/L (3.5-5.1)
[2022-04-20] MEDS: Metoprolol XL (24 HR) Succ 50 MG TAB.ER.24H PO SCH (07:51)
[2022-04-20] MEDS: Baclofen 10 MG TABLET PO SCH (07:51)
[2022-04-20] MEDS: Pregabalin 75 MG CAPSULE PO SCH ×2 (07:52→20:02)
[2022-04-20] MEDS ORDERED: Fluticasone Propionate Nasal 50 MCG/SPRAY BOTTLE NS PRN (08:21)
[2022-04-20] MEDS ORDERED: Triamcinolone Acet 0.1% CRM 15 GM TUBE TP PRN (08:21)
[2022-04-20] MEDS: Isosorbide MONOnitrate (24 HR) 30 MG TAB.ER.24H PO SCH (09:33)
[2022-04-20] MEDS: Bicalutamide 50 MG TABLET PO SCH (09:33)
[2022-04-20] MEDS: Cholecalciferol (D-3) 1,000 UNIT (25MCG) TABLET PO SCH (09:33)
[2022-04-20] MEDS: lisinopriL 10 MG TABLET PO SCH (09:34)
[2022-04-20] MEDS ORDERED: Aspirin 81 MG TAB.CHEW PO SCH (21:00)
[2022-04-21 08:53] LABS: Basophils # 0.1 K/mcL (0.0-0.2); Basophils % 0.7 %; Eosinophils # 0.5 K/mcL (0.0-0.6); Eosinophils % 6.8 %; Hematocrit 24.9 % (37.5-50.1); Hemoglobin 7.4 g/dL (12.9-16.9); Immature Granulocytes % 0.8 % (0-4); Lymphocytes # 0.9 K/mcL (0.6-4.6); Lymphocytes % 12.4 %; Mean Corpuscular HGB Conc 29.7 g/dL (31.6-35.5); Mean Corpuscular Hemoglobin 28.6 pg (28.0-33.3); Mean Corpuscular Volume 96.1 fL (83.0-100.0); Mean Platelet Volume 9.9 fL (9.4-12.4); Monocytes # 0.9 K/mcL (0.0-1.3); Monocytes % 11.6 %; Nucleated Red Blood Cells 0.5 /100 WBC (0); Platelet Count 281 K/mcL (140-400); Red Blood Count 2.59 M/mcL (4.19-5.50); Red Cell Distribution Width 14.4 % (11.5-14.5); Segmented Neutrophils % 67.7 %; White Blood Count 7.4 K/mcL (4.3-11.1)
[2022-04-21 09:17] LABS: Calcium 8.7 mg/dL (8.6-10.3); Potassium 4.5 mEq/L (3.5-5.1)
[2022-04-21] MEDS: Isosorbide MONOnitrate (24 HR) 30 MG TAB.ER.24H PO SCH (09:20)
[2022-04-21] MEDS: Pregabalin 75 MG CAPSULE PO SCH ×2 (09:20→20:02)
[2022-04-21] MEDS: Metoprolol XL (24 HR) Succ 50 MG TAB.ER.24H PO SCH (09:20)
[2022-04-21] MEDS: lisinopriL 10 MG TABLET PO SCH (09:20)
[2022-04-21] MEDS: Baclofen 10 MG TABLET PO SCH (09:20)
[2022-04-21] MEDS: Cholecalciferol (D-3) 1,000 UNIT (25MCG) TABLET PO SCH (09:20)
[2022-04-21] MEDS: Bicalutamide 50 MG TABLET PO SCH (09:20)
[2022-04-21] MEDS ORDERED: Pantoprazole 40 MG VIAL IVP ONE (10:21)
[2022-04-21] MEDS ORDERED: Ondansetron 4 MG/2 ML VIAL ONE (11:05)
[2022-04-21] MEDS ORDERED: Lidocaine -MPF 2% 5 ML VIAL ONE ×2 (11:05→13:12)
[2022-04-21] MEDS ORDERED: *HR* Propofol 200 MG/20 ML VIAL IVP ONE ×2 (11:06→14:17)
[2022-04-21] MEDS ORDERED: *HR* Succinylcholine 200 MG/10 ML VIAL IVP ONE (11:06)
[2022-04-21] MEDS ORDERED: *HR* FentaNYL (PF) 100 MCG/2 ML VIAL ONE ×2 (11:54→12:56)
[2022-04-21] MEDS ORDERED: *HR* HYDROmorphone PF 0.5 MG/0.5 ML SYRINGE IVP PRN (12:15)
[2022-04-21] MEDS ORDERED: Ondansetron 4 MG/2 ML VIAL IVP PRN (12:15)
[2022-04-21] MEDS ORDERED: *HR* OxyCODONE Immed Rel 5 MG TABLET PO PRN (12:15)
[2022-04-21] MEDS ORDERED: EPHEDrine 50 MG/ML VIAL ONE (12:52)
[2022-04-21 14:17] LABS: Hematocrit 21.7 % (37.5-50.1); Hemoglobin 6.8 g/dL (12.9-16.9)
[2022-04-21 15:45] LABS: Calcium 6.9 mg/dL (8.6-10.3)
[2022-04-21] MEDS ORDERED: Naloxone 0.4 MG/ML INJ IVP PRN (16:43)
[2022-04-21] MEDS ORDERED: Triamcinolone Acet 0.1% CRM 15 GM TUBE TP PRN (16:43)
[2022-04-21] MEDS ORDERED: Acetaminophen 325 MG TABLET PO PRN (16:43)
[2022-04-21] MEDS ORDERED: Melatonin 3 MG TABLET PO PRN (16:43)
[2022-04-21] MEDS ORDERED: Fluticasone Propionate Nasal 50 MCG/SPRAY BOTTLE NS PRN (16:43)
[2022-04-21] MEDS: cefTRIAXone 1,000 MG in 0.9 % Sodium Chloride Mini Bag 100 ML IVPB SCH (23:50)
[2022-04-22 02:18] LABS: Basophils % 0.1 %; Hematocrit 25.4 % (37.5-50.1); Hemoglobin 7.8 g/dL (12.9-16.9); Immature Granulocytes % 0.9 % (0-4); Lymphocytes # 0.4 K/mcL (0.6-4.6); Lymphocytes % 3.9 %; Mean Corpuscular HGB Conc 30.7 g/dL (31.6-35.5); Mean Corpuscular Hemoglobin 28.9 pg (28.0-33.3); Mean Corpuscular Volume 94.1 fL (83.0-100.0); Mean Platelet Volume 10.2 fL (9.4-12.4); Monocytes # 0.8 K/mcL (0.0-1.3); Monocytes % 7.9 %; Neutrophils # 8.3 K/mcL (1.6-8.9); Nucleated Red Blood Cells 0.4 /100 WBC (0); Platelet Count 273 K/mcL (140-400); Red Cell Distribution Width 14.8 % (11.5-14.5); Segmented Neutrophils % 87.2 %; White Blood Count 9.6 K/mcL (4.3-11.1)
[2022-04-22 02:49] LABS: Calcium 8.5 mg/dL (8.6-10.3); Potassium 5.2 mEq/L (3.5-5.1)
[2022-04-22] MEDS: Metoprolol XL (24 HR) Succ 50 MG TAB.ER.24H PO SCH (08:44)
[2022-04-22] MEDS: Bicalutamide 50 MG TABLET PO SCH (08:44)
[2022-04-22] MEDS: Pregabalin 75 MG CAPSULE PO SCH ×2 (08:44→19:44)
[2022-04-22] MEDS: Cholecalciferol (D-3) 1,000 UNIT (25MCG) TABLET PO SCH (08:45)
[2022-04-22] MEDS: Isosorbide MONOnitrate (24 HR) 30 MG TAB.ER.24H PO SCH (08:45)
[2022-04-22] MEDS: Baclofen 10 MG TABLET PO SCH (08:45)
[2022-04-22] MEDS: lisinopriL 10 MG TABLET PO SCH (08:45)
[2022-04-22] MEDS ORDERED: Ketoconazole Shampoo 120 ML BOTTLE TP SCH ×2 (09:00)
[2022-04-22] MEDS: *HR* HYDROmorphone (PF) 1 MG/ML SYRINGE IVP PRN (12:24)
[2022-04-22 16:22] LABS: Hematocrit 25.1 % (37.5-50.1); Hemoglobin 7.6 g/dL (12.9-16.9); Mean Corpuscular HGB Conc 30.3 g/dL (31.6-35.5); Mean Corpuscular Hemoglobin 29.1 pg (28.0-33.3); Mean Corpuscular Volume 96.2 fL (83.0-100.0); Mean Platelet Volume 10.1 fL (9.4-12.4); Platelet Count 306 K/mcL (140-400); Red Blood Count 2.61 M/mcL (4.19-5.50); Red Cell Distribution Width 15.1 % (11.5-14.5); White Blood Count 8.7 K/mcL (4.3-11.1)
[2022-04-23] MEDS: cefTRIAXone 1,000 MG in 0.9 % Sodium Chloride Mini Bag 100 ML IVPB SCH ×2 (00:16→23:33)
[2022-04-23 03:29] LABS: Basophils % 0.4 %; Eosinophils # 0.5 K/mcL (0.0-0.6); Eosinophils % 7.3 %; Hematocrit 23.4 % (37.5-50.1); Hemoglobin 7.1 g/dL (12.9-16.9); Immature Granulocytes % 0.7 % (0-4); Lymphocytes # 0.7 K/mcL (0.6-4.6); Lymphocytes % 10.9 %; Mean Corpuscular HGB Conc 30.3 g/dL (31.6-35.5); Mean Corpuscular Hemoglobin 29.3 pg (28.0-33.3); Mean Corpuscular Volume 96.7 fL (83.0-100.0); Mean Platelet Volume 10.2 fL (9.4-12.4); Monocytes # 0.8 K/mcL (0.0-1.3); Monocytes % 11.6 %; Neutrophils # 4.7 K/mcL (1.6-8.9); Nucleated Red Blood Cells 0.4 /100 WBC (0); Platelet Count 266 K/mcL (140-400); Red Blood Count 2.42 M/mcL (4.19-5.50); Red Cell Distribution Width 14.7 % (11.5-14.5); Segmented Neutrophils % 69.1 %; White Blood Count 6.8 K/mcL (4.3-11.1)
[2022-04-23 03:48] LABS: Calcium 8.1 mg/dL (8.6-10.3); Potassium 4.2 mEq/L (3.5-5.1)
[2022-04-23] MEDS: Isosorbide MONOnitrate (24 HR) 30 MG TAB.ER.24H PO SCH (09:53)
[2022-04-23] MEDS: lisinopriL 10 MG TABLET PO SCH (09:53)
[2022-04-23] MEDS: Cholecalciferol (D-3) 1,000 UNIT (25MCG) TABLET PO SCH (09:53)
[2022-04-23] MEDS: Metoprolol XL (24 HR) Succ 50 MG TAB.ER.24H PO SCH (09:53)
[2022-04-23] MEDS: Pregabalin 75 MG CAPSULE PO SCH ×2 (09:54→20:09)
[2022-04-23] MEDS: Baclofen 10 MG TABLET PO SCH (09:54)
[2022-04-23] MEDS: Bicalutamide 50 MG TABLET PO SCH (09:54)
[2022-04-23] MEDS: *HR* HYDROmorphone (PF) 1 MG/ML SYRINGE IVP PRN ×3 (09:59→23:37)
[2022-04-23] MEDS ORDERED: 0.9 % Sodium Chloride 250 ML ONE (12:52)
[2022-04-23] MEDS ORDERED: Hyoscyamine SL 0.125 MG TAB.SUBL SL PRN (16:02)
[2022-04-24 05:51] LABS: Basophils # 0.1 K/mcL (0.0-0.2); Eosinophils # 0.6 K/mcL (0.0-0.6); Eosinophils % 8.7 %; Hematocrit 27.5 % (37.5-50.1); Hemoglobin 8.4 g/dL (12.9-16.9); Lymphocytes # 0.8 K/mcL (0.6-4.6); Mean Corpuscular HGB Conc 30.5 g/dL (31.6-35.5); Mean Corpuscular Hemoglobin 27.9 pg (28.0-33.3); Mean Corpuscular Volume 91.4 fL (83.0-100.0); Mean Platelet Volume 9.8 fL (9.4-12.4); Monocytes # 0.9 K/mcL (0.0-1.3); Monocytes % 13.3 %; Neutrophils # 4.4 K/mcL (1.6-8.9); Nucleated Red Blood Cells 0.9 /100 WBC (0); Platelet Count 277 K/mcL (140-400); Red Blood Count 3.01 M/mcL (4.19-5.50); Red Cell Distribution Width 15.1 % (11.5-14.5); White Blood Count 6.9 K/mcL (4.3-11.1)
[2022-04-24 06:16] LABS: Calcium 8.8 mg/dL (8.6-10.3); Potassium 4.4 mEq/L (3.5-5.1)
[2022-04-24] MEDS: *HR* HYDROmorphone (PF) 1 MG/ML SYRINGE IVP PRN ×3 (06:47→22:47)
[2022-04-24] MEDS ORDERED: *HR* FentaNYL (PF) 100 MCG/2 ML VIAL ONE (08:38)
[2022-04-24] MEDS ORDERED: Lidocaine -MPF 2% 5 ML VIAL ONE (08:38)
[2022-04-24] MEDS ORDERED: *HR* Propofol 200 MG/20 ML VIAL IVP ONE (08:38)
[2022-04-24] MEDS: Metoprolol XL (24 HR) Succ 50 MG TAB.ER.24H PO SCH (08:44)
[2022-04-24] MEDS ORDERED: Albuterol 2.5 MG/3 ML NEBULIZER IH PRN (09:26)
[2022-04-24] MEDS ORDERED: Ondansetron 4 MG/2 ML VIAL IVP PRN (09:26)
[2022-04-24] MEDS ORDERED: Naloxone 0.4 MG/ML INJ IVP PRN ×2 (09:26→12:00)
[2022-04-24] MEDS ORDERED: *HR* FentaNYL (PF) 100 MCG/2 ML VIAL IVP PRN (09:26)
[2022-04-24] MEDS ORDERED: Nitroglycerin 0.4 MG TAB.SUBL SL PRN (09:26)
[2022-04-24] MEDS ORDERED: Ondansetron 4 MG/2 ML VIAL ONE (10:43)
[2022-04-24] MEDS ORDERED: Acetaminophen 325 MG TABLET PO PRN (12:00)
[2022-04-24] MEDS ORDERED: Triamcinolone Acet 0.1% CRM 15 GM TUBE TP PRN (12:00)
[2022-04-24] MEDS ORDERED: Fluticasone Propionate Nasal 50 MCG/SPRAY BOTTLE NS PRN (12:00)
[2022-04-24] MEDS ORDERED: Hyoscyamine SL 0.125 MG TAB.SUBL SL PRN (12:00)
[2022-04-24] MEDS: Pregabalin 75 MG CAPSULE PO SCH (20:26)
[2022-04-24] MEDS: *HR* HYDROcodone/Acet 7.5/325 mg TABLET PO PRN (20:26)
[2022-04-24] MEDS: Melatonin 3 MG TABLET PO PRN (20:27)
[2022-04-24] MEDS: cefTRIAXone 1,000 MG in 0.9 % Sodium Chloride Mini Bag 100 ML IVPB SCH (22:50)
[2022-04-25] MEDS: *HR* HYDROcodone/Acet 7.5/325 mg TABLET PO PRN (02:47)
[2022-04-25 05:37] LABS: Hematocrit 27.1 % (37.5-50.1); Hemoglobin 8.2 g/dL (12.9-16.9); Mean Corpuscular HGB Conc 30.3 g/dL (31.6-35.5); Mean Corpuscular Hemoglobin 27.6 pg (28.0-33.3); Mean Corpuscular Volume 91.2 fL (83.0-100.0); Mean Platelet Volume 10.4 fL (9.4-12.4); Platelet Count 298 K/mcL (140-400); Red Blood Count 2.97 M/mcL (4.19-5.50); Red Cell Distribution Width 14.7 % (11.5-14.5); White Blood Count 5.9 K/mcL (4.3-11.1)
[2022-04-25 05:52] LABS: Calcium 8.8 mg/dL (8.6-10.3); Potassium 4.8 mEq/L (3.5-5.1)
[2022-04-25] MEDS ORDERED: Ketoconazole Shampoo 120 ML BOTTLE TP SCH (09:00)
[2022-04-25] MEDS: lisinopriL 10 MG TABLET PO SCH (09:50)
[2022-04-25] MEDS: Pregabalin 75 MG CAPSULE PO SCH ×2 (09:50→21:14)
[2022-04-25] MEDS: Bicalutamide 50 MG TABLET PO SCH (09:51)
[2022-04-25] MEDS: Cholecalciferol (D-3) 1,000 UNIT (25MCG) TABLET PO SCH (09:51)
[2022-04-25] MEDS: Baclofen 10 MG TABLET PO SCH (09:51)
[2022-04-25] MEDS: Metoprolol XL (24 HR) Succ 50 MG TAB.ER.24H PO SCH (09:52)
[2022-04-25] MEDS: Isosorbide MONOnitrate (24 HR) 30 MG TAB.ER.24H PO SCH (09:52)
[2022-04-25] MEDS: cefTRIAXone 1,000 MG in 0.9 % Sodium Chloride Mini Bag 100 ML IVPB SCH (23:58)
[2022-04-26] MEDS: Melatonin 3 MG TABLET PO PRN (00:01)
[2022-04-26 04:05] LABS: Hematocrit 26.3 % (37.5-50.1); Mean Corpuscular HGB Conc 30.4 g/dL (31.6-35.5); Mean Platelet Volume 9.9 fL (9.4-12.4); Platelet Count 250 K/mcL (140-400); Red Blood Count 2.86 M/mcL (4.19-5.50); Red Cell Distribution Width 14.6 % (11.5-14.5)
[2022-04-26 04:27] LABS: Calcium 8.6 mg/dL (8.6-10.3); Potassium 3.7 mEq/L (3.5-5.1)
[2022-04-26] MEDS: Isosorbide MONOnitrate (24 HR) 30 MG TAB.ER.24H PO SCH (08:50)
[2022-04-26] MEDS: Pregabalin 75 MG CAPSULE PO SCH (08:50)
[2022-04-26] MEDS: lisinopriL 10 MG TABLET PO SCH (08:51)
[2022-04-26] MEDS: Cholecalciferol (D-3) 1,000 UNIT (25MCG) TABLET PO SCH (08:51)
[2022-04-26] MEDS: Bicalutamide 50 MG TABLET PO SCH (08:51)
[2022-04-26] MEDS: Metoprolol XL (24 HR) Succ 50 MG TAB.ER.24H PO SCH (08:51)
[2022-04-26] MEDS: Baclofen 10 MG TABLET PO SCH (08:51)
[2022-04-26 10:33] VITALS: BP 123/72; PULSE 72; TEMP 98.4; O2SAT 96
== END 2022-04-26 14:53 | disposition home or self-care (01) | DRG 666 ==
LOC: SUATTDRO → EMEROOARM 15:54 → 3ANU 15:54 → SUATTDRO 20:23 → 3ANU 21:41 → SUATTDRO 04-19 11:36
PROVIDERS: ADMIT Internal Medicine; ATTEND Internal Medicine

== ENCOUNTER 2022-06-17 13:53 | Observation (INO) ==
[2022-06-17] MEDS ORDERED: *HR* Promethazine 25 MG/ML VIAL IM PRN (14:22)
[2022-06-17] MEDS ORDERED: Naloxone 0.4 MG/ML INJ IVP PRN ×2 (14:22)
[2022-06-17] MEDS ORDERED: *HR* Belladonna Alkaloids/Opium 30 MG RECTAL SUPPOSITORY RC PRN (14:22)
[2022-06-17] MEDS ORDERED: *HR* HYDROcodone/Acet 5/325 mg TABLET PO PRN (14:22)
[2022-06-17] MEDS ORDERED: Ondansetron 4 MG/2 ML VIAL IVP PRN (14:22)
[2022-06-17] MEDS: 0.9 % Sodium Chloride 1,000 ML IVC SCH ×2 (15:36→21:55)
[2022-06-17] MEDS ORDERED: Acetaminophen IV 1,000 MG/100 ML BAG IVPB SCH (16:00)
[2022-06-17 20:26] VITALS: PULSE 68; TEMP 97.9; O2SAT 93
[2022-06-17 21:54] VITALS: BP 172/73
[2022-06-18] MEDS ORDERED: cefTRIAXone 1,000 MG in 0.9 % Sodium Chloride Mini Bag 100 ML IVPB SCH (09:00)
== END 2022-06-17 23:59 | disposition other institution (70) ==
LOC: 3BNU
PROVIDERS: ADMIT Urology; ATTEND Urology